=== PATIENT | male | born 1965 | race African-American/Black ===

== ENCOUNTER 2022-08-24 10:49 | Emergency (ER) | payer MEDICAID ==
[~2022-08-24] VITALS: Ht 172.7 cm; Wt 67.0 kg
[2022-08-24 11:12] VITALS: BP 116/65
[2022-08-24] MEDS ORDERED: MED4 MT (11:29)
[2022-08-24] MEDS ORDERED: ACET-2708 MT (11:29)
[2022-08-24] MEDS ORDERED: ACETAMINOPHEN 325MG TABLET PO ONE (11:30)
== END 2022-08-24 11:42 | disposition home or self-care (01) ==
LOC: ER 10:49
DX: J04.0 Acute laryngitis (principal); J02.9 Acute pharyngitis, unspecified
CPT/HCPCS: 99282